=== PATIENT | female | born 1980 | race Caucasian/White ===

== ENCOUNTER 2018-10-07 05:21 | Day surgery (SDC) | payer BC, OTHER ==
[2018-10-06 16:31] VITALS: BMI 25.4
[2018-10-07] MEDS ORDERED: PROPOFOL 20 ML ONE (13:36)
[2018-10-07] MEDS ORDERED: MIDAZOLAM HCL 2 MG/2 ML SINGLE DOSE VIAL ONE (13:37)
[2018-10-07] MEDS ORDERED: LIDOCAINE HCL/PF 2% SDV 5ML VIAL ONE (13:38)
[2018-10-07] MEDS ORDERED: DEXAMETHASONE SOD PHOSPHATE 4 MG/1 ML VIAL ONE ×2 (13:39→13:42)
[2018-10-07] MEDS ORDERED: ceFAZolin SODIUM 1 GM VIAL ONE (13:42)
[2018-10-07] MEDS ORDERED: ceFAZolin SODIUM 1 GM VIAL IVPB ONE (13:42)
[2018-10-07] MEDS ORDERED: oxyCODONE HCL 5 MG TABLET PO PRN (14:46)
[2018-10-07] MEDS ORDERED: PROMETHAZINE HCL 25 MG/1 ML VIAL IVPUSH PRN (14:46)
[2018-10-07] MEDS ORDERED: ONDANSETRON 4 MG/2 ML VIAL IVPUSH PRN (14:46)
[2018-10-07] MEDS ORDERED: ACETAMINOPHEN 325 MG TABLET (FP) PO PRN (14:48)
[2018-10-07] MEDS ORDERED: IBUPROFEN 400 MG TABLET (FP) PO PRN (14:48)
[2018-10-07] MEDS ORDERED: LACTATED RINGERS SOLUTION 1,000 ML IV SCH (15:00)
[2018-10-07 15:43] VITALS: TEMP 97.9
[2018-10-07 17:12] VITALS: BP 119/76; PULSE 80
--- NOTE | 2018-10-07 19:52 | OP ---
DATE OF OPERATION: 10/07/2018 SURGEON: Talon Silverman MD ANESTHESIA: General, by Dr. Alanna Vega OPERATION: Colposcopy, endocervical curetting, and loop electrocautery excision procedure. While patient was prepped and draped under general anesthesia, examination under anesthesia revealed vagina clean, cervix closed, corpus normal, adnexa negative. During procedure, weighted speculum applied in the vagina, cervix grasped with tenaculum, and colposcopy was done with the help of the Schiller method. There was not an obvious lesion but there was congestion after colposcopy. Then the LEEP biopsy was done and a specimen was sent to Pathology, and endocervical curetting also was done and specimen sent to Pathology. Estimated blood loss was 3 mL. Patient tolerated the procedure, was sent to recovery room in good condition. Santos GRIFFIN/[id number]
--- NOTE | 2018-10-14 13:29 | PATH ---
Surgical Pathology Report Patient Name: NORMA BRIAN [facility]. Rec. #: [id number] /Age/Gender: 1980 (Age: 37) / F Account: [id number] Location: [facility] SURGICAL Taken: 10/07/2018 Received: 10/08/2018 Reported: 10/14/2018 Physicians: Ronald Silverman M.D. Specimen(s) Received A: CERVIX LEEP CONE B: ENDOCERVICAL CURETTINGS Clinical History High grade intraepithelial lesion Final Diagnosis A. CERVIX, LOOP ELECTROSURGICAL EXCISION PROCEDURE (LEEP)/CONE BIOPSY: CERVICAL SQUAMOUS AND ENDOCERVICAL MUCOSA WITH LOW GRADE SQUAMOUS INTRAEPITHELIAL LESION (LSIL). SURGICAL RESECTION MARGINS: NEGATIVE FOR HIGH GRADE DYSPLASIA. TRANSFORMATION ZONE: PRESENT. B. ENDOCERVICAL CURETTINGS, DILATION AND CURETTAGE: FRAGMENTS OF BENIGN ENDOCERVICAL MUCOSA. Comment: Immunohistochemical stains performed at [place], [place] ([id number]) and interpreted at [facility] show p16 is negative. Ki-67 was utilized to evaluate this case. Findings discussed with Dr. Silverman. Electronically Signed Lise Rodriguez M.D. Gross Description A. Received in formalin labeled "LEEP cone," are 2 mcdaniel, unoriented portions of soft tissue measuring 0.6 x 0.5 x 0.2 cm and 1.7 x 0.6 x 0.3 cm, consistent with portions of cervix. There is no cervical os present. The specimens are inked green, serially sectioned and entirely submitted in 3 cassettes as follows: 1-smaller portion of tissue; 2-3-larger portion of tissue. B. Received in formalin labeled "endocervical curetting," is a 1.7 x 1.4 x 0.2 cm aggregate of mcdaniel-brown soft tissue fragments admixed with mucus and blood clot. The formalin is filtered and the specimen is entirely submitted in one cassette. /10/08/201810/08/2018
== END 2018-10-07 16:15 | disposition home or self-care (01) ==
LOC: JASU-SURG 05:21
PROVIDERS: ATTEND Obstetrics & Gynecology
PROC: 0UBC8ZX Excision of Cervix, Via Natural or Artificial Opening Endoscopic, Diagnostic (ICD-10-PCS; principal; 2018-10-07 13:00)
DX: N87.9 Dysplasia of cervix uteri, unspecified (principal)
CPT/HCPCS: 36415; 84703; 86850; 86900; 86901; 88305-TC; 88307-TC; 94760

== ENCOUNTER → 2021-11-22 | Day surgery (SDC) | payer OTHER, BC | END | disposition home or self-care (01) | LOC: FMAMMOTONE 08:45 | PROVIDERS: ATTEND Specialist | PROC: 0HBT3ZX Excision of Right Breast, Percutaneous Approach, Diagnostic (ICD-10-PCS; principal; 2021-11-22) | DX: N60.11 Diffuse cystic mastopathy of right breast (principal); N60.31 Fibrosclerosis of right breast; N60.81 Other benign mammary dysplasias of right breast; N64.89 Other specified disorders of breast; R92.1 Mammographic calcification found on diagnostic imaging of breast | CPT/HCPCS: 19081; 76098-TC-FY; 87899; 88305-TC; A4648 ==